=== PATIENT | male | born 1975 | race Caucasian/White ===

== ENCOUNTER 2018-03-01 00:36 | Emergency (ER) | payer MEDICAID ==
[~2018-03-01] VITALS: Ht 182.9 cm; Wt 83.9 kg
== END 2018-03-01 05:00 | disposition home or self-care (01) ==
LOC: ED 00:36
DX: R23.8 Other skin changes (principal); F17.200 Nicotine dependence, unspecified, uncomplicated
CPT/HCPCS: 99282

== ENCOUNTER → 2018-03-02 | Emergency (ER) | payer MEDICAID ==
[~2018-03-02] VITALS: Ht 182.9 cm; Wt 83.9 kg
--- NOTE | 2018-03-04 08:48 | EKG ---
[facility] [address] [facility] [place] [address] Signed Atrial fibrillation with rapid ventricular response with premature ventricular or aberrantly conducted complexes Abnormal ECG No previous ECGs available Confirmed by JON DIETZ MD ([id number]) on 03/04/2018 8:47:52 AM Electronically Signed By: JON DIETZ MD 03/04/18 0848 PATIENT NAME: TRINITY DAMICO MIKE Electrocardiogram DATE OF : 79 PHYSICIAN: JON DIETZ MD REPORT #: [id number] REPORT IS CONFIDENTIAL AND NOT TO BE RELEASED WITHOUT AUTHORIZATION
== END ==
LOC: ED 03:06
DX: I48.91 Unspecified atrial fibrillation (principal); F17.200 Nicotine dependence, unspecified, uncomplicated
CPT/HCPCS: 71045; 80053; 83735; 84484; 85025; 93005; 93010; 96374; 99284; J7030

== ENCOUNTER 2019-02-09 19:38 | Emergency (ER) | payer OTHER ==
[~2019-02-09] VITALS: Ht 182.9 cm; Wt 83.9 kg
--- OUTSIDE RECORDS SUMMARY | 2019-02-09 22:16 | XMS ---
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 Events No recent Security Events currently on file CRITERIA MET - [facility] [place] PROVIDERS SEMAJ CAO Rubber Compounder Formulator: Clinical 11/02/2018-Current PHONE: [phone] [facility] Current PHONE: Unknown MAYELA FONG Student in an Organized Health Care Current Education/Training Program PHONE: [phone] BERTHA FATIMA Corporate Giving Manager/Global Category Manager Current PHONE: [phone] BERTHA FATIMA Primary Care Current PHONE: Unknown Guidelines Source: [facility] Guidelines Date: 09/01/2018 Care Coordination: Client states they would like \T\quot;Meggan Machado\T\quot; contacted to help coordinate care. Pain Management: Client stated nothing they could think of would be helpful.\T\nbsp; Other Information: Client relays that being offered anxiety medications, offered encouragement and empathy. Client states they are not concerned about harming themselves or others in the ED Client relays that \T\quot;human beings\T\quot; can be triggering, specifically when people being rude, impatient or judgmental.\T\nbsp;\T\nbsp; This is a guideline, attending physician\T\#39;s should use clinical judgement.\ T\nbsp; E.D. VISIT COUNT (12 MO.) [address] [place] [address] [facility] [place] TOTAL 7 NOTE: Visits indicate total known visits. ED/UCC VISIT TRACKING (12 MO.) 02/09/2019 19:[address] [facility] [place] TYPE: Emergency COMPLAINT: - CHEST PAIN,VOMITING [facility]2018 [facility] DIAGNOSES: - Medication Administration Only - Needs Medication 07/28/2018 09:11 [facility] [place] TYPE: Emergency DIAGNOSES: - Paroxysmal atrial fibrillation - Dehydration - Hypokalemia - Tachycardia 04/19/2018 11:01 [email or web address] [place] TYPE: Emergency DIAGNOSES: - Agitation - Recurrent oral aphthae - Lip Laceration - Mouth Lesions 03/18/2018 17:[facility] DIAGNOSES: - Schizoaffective disorder, bipolar type - Cellulitis of unspecified part of limb - Other stimulant abuse, uncomplicated - Shortness of Breath - Meth Use, Shortness of Breath - Other psychoactive substance use, unspecified, uncomplicated - Meth Use 03/02/2018 03:06 [facility] [place] TYPE: Emergency COMPLAINT: - HEART PALPITATIONS DIAGNOSES: - Unspecified atrial fibrillation - Palpitations - Nicotine dependence, unspecified, uncomplicated 03/01/2018 00:37 [facility] [place] TYPE: Emergency COMPLAINT: - L R FOOT PAIN DIAGNOSES: - Pain in right ankle and joints of right foot - Nicotine dependence, unspecified, uncomplicated - Other skin changes INPATIENT VISIT TRACKING (12 MO.) 03/18/2018 17:21 [facility] [place] [place] TYPE: [facility] DIAGNOSES: - Schizoaffective disorder, bipolar type - Other psychoactive substance use, unspecified, uncomplicated - Other stimulant abuse, uncomplicated - Cellulitis of unspecified part of limb - Other stimulant abuse, uncomplicated [email or web address]
--- NOTE | 2019-02-10 16:52 | EKG ---
[facility] [address] [place] [address] Signed Sinus tachycardia Possible Left atrial enlargement Incomplete right bundle branch block Nonspecific ST abnormality in inferior and anterolateral leads new compared to 03/02/2018 EKG. Abnormal ECG When compared with ECG of 02-MAR-2018 03:11, Sinus rhythm has replaced Atrial fibrillation Incomplete right bundle branch block is now present Non-specific change in ST segment in Anterior leads QT has lengthened Confirmed by JON DIETZ MD ([id number]) on 02/10/2019 4:52:25 PM Electronically Signed By: JON DIETZ MD 02/10/19 165 PATIENT NAME: TRINITY DAMICO Electrocardiogram DATE OF : 79 PHYSICIAN: JON DIETZ MD REPORT #: [id number] REPORT IS CONFIDENTIAL AND NOT TO BE RELEASED WITHOUT AUTHORIZATION
== END 2019-02-09 22:00 | disposition home or self-care (01) ==
LOC: ED 19:38
DX: R00.2 Palpitations (principal); F17.200 Nicotine dependence, unspecified, uncomplicated
CPT/HCPCS: 71045; 80053; 83735; 84484; 85025; 93005; 93010; 96361; 96374; 99285-25; G0480; J2405; J7030

== ENCOUNTER 2019-07-09 19:09 | Emergency (ER) | payer OTHER ==
[~2019-07-09] VITALS: Ht 182.9 cm; Wt 41.3 kg
--- OUTSIDE RECORDS SUMMARY | 2019-07-09 19:12 | XMS ---
PreManage Notification: TRINITY DAMICO Security Afterschool Events No recent Security Events currently on file CRITERIA MET - [facility] CARE PROVIDERS JARON HERNANDEZ Counselor: Mental Health Current PHONE: [phone] SEMAJ CAO Rnp: Clinical 11/02/2018-Current PHONE: [phone] [facility] Current PHONE: Unknown NGOZI VUONG Nurse Practitioner: Adult Health Current PHONE: [phone] BERTHA FATIMA Primary Care Current PHONE: Unknown Guidelines Source: [facility] Guidelines Date: 09/01/2018 Care Coordination: Client states [...] judgement.\ T\nbsp; E.D. VISIT COUNT (12 MO.) [address] [place] [address] [place] TOTAL 4 NOTE: Visits indicate total known visits. ED/UCC VISIT TRACKING (12 MO.) 07/09/2019 19:10 [facility] [place] TYPE: Emergency COMPLAINT: - POSS. AFIB 02/09/2019 19:38 [facility] [place] TYPE: Emergency COMPLAINT: - CHEST PAIN,VOMITING DIAGNOSES: - Nausea with vomiting, unspecified - Nicotine dependence, unspecified, uncomplicated - Palpitations 11/01[facility]2018 [facility] DIAGNOSES: - Medication Administration Only - Needs Medication 07/28/2018 09:11 [facility] [place] TYPE: Emergency DIAGNOSES: - Paroxysmal atrial fibrillation - Dehydration - Hypokalemia - Tachycardia INPATIENT VISIT TRACKING (12 MO.) No inpatient visits to display in this time frame [email or web address]
[2019-07-09] MEDS ORDERED: BASAGLAR K100 UNIT/1 (19:22)
[2019-07-09] MEDS ORDERED: SEROQUEL300 MG PO (19:23)
[2019-07-09] MEDS ORDERED: NAPROXEN500 MG PO (19:23)
[2019-07-09] MEDS ORDERED: CARDIZEM CD120 MG PO (22:07)
--- NOTE | 2019-07-10 11:08 | EKG ---
[facility] [address] [facility] [place] [address] Signed Atrial fibrillation with rapid ventricular response Abnormal ECG When compared with ECG of 09-FEB-2019 20:18, Atrial fibrillation has replaced Sinus rhythm Confirmed by ALICIA CORTES DO ([id number]) on 07/10/2019 11:08:31 AM Electronically Signed By: ALICIA CORTES DO 07/10/19 1108 PATIENT NAME: MOOKIETRINITY MIKE Electrocardiogram DATE OF : 79 PHYSICIAN: ALCIIA CORTES DO REPORT #: [id number] REPORT IS CONFIDENTIAL AND NOT TO BE RELEASED WITHOUT AUTHORIZATION
== END 2019-07-09 22:40 | disposition home or self-care (01) ==
LOC: ED 19:09
DX: I48.91 Unspecified atrial fibrillation (principal); Z87.891 Personal history of nicotine dependence
CPT/HCPCS: 71045; 80053; 83735; 84443; 84484; 85025; 93005; 93010; 96361; 96374; 96376; 99285-25; J7030

== ENCOUNTER 2019-10-09 16:19 | Observation (INO) | payer OTHER ==
[~2019-10-09] VITALS: Ht 182.9 cm; Wt 79.9 kg
[~2019-10-09 16:19] MED LIST: BASAGLAR K100 UNIT/1; CARDIZEM CD120 MG PO; NAPROXEN500 MG PO; SEROQUEL300 MG PO
--- OUTSIDE RECORDS SUMMARY | 2019-10-09 16:22 | XMS ---
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 VISIT COUNT (12 MO.) [address] [place] [address] [address] TOTAL 4 NOTE: Visits indicate total known visits. ED/UCC VISIT TRACKING (12 MO.) 10/09/2019 16:19 [facility] [place] TYPE: Emergency COMPLAINT: - IRREGULAR HEART BEAT 07/09/2019 19:10 [facility] [place] TYPE: Emergency COMPLAINT: - POSS. AFIB DIAGNOSES: - Palpitations - Personal history of nicotine dependence - Unspecified atrial fibrillation 02/09/2019 19:38 [facility] [place] TYPE: Emergency COMPLAINT: - CHEST PAIN,VOMITING DIAGNOSES: - Nausea with vomiting, unspecified - Nicotine dependence, unspecified, uncomplicated - Palpitations [facility]2018 [facility] DIAGNOSES: - Medication Administration Only - Needs Medication INPATIENT VISIT TRACKING (12 MO.) No inpatient visits to display in this time frame [id number]
--- NOTE | 2019-10-09 18:51 | EKG ---
[facility] [address] [facility] [place] [address] Signed Atrial fibrillation with rapid ventricular response Incomplete right bundle branch block Anterior infarct , age undetermined Abnormal ECG When compared with ECG of 09-JUL-2019 19:20, Anterior infarct is now present ST now depressed in Inferior leads Nonspecific T wave abnormality now evident in Anterior leads Confirmed by ALICIA CORTES DO ([id number]) on 10/09/2019 6:51:00 PM Electronically Signed By: ALICIA CORTES DO 10/09/19 185 PATIENT NAME: TRINITY DAMICO Electrocardiogram DATE OF : 79 PHYSICIAN: ALICIA CORTES DO REPORT #: [id number] REPORT IS CONFIDENTIAL AND NOT TO BE RELEASED WITHOUT AUTHORIZATION
--- NOTE | 2019-10-09 23:00 | NUR ---
PATIENT ARRIVED VIA STRETCHER. TRANSFERED WITHOUT ASSISTANCE TO BED. STABLE ON HIS FEET. HR IRREGULAR IN 60'S. CARDIZEM INFUSION AT 7.5 MG/HR. VERBAL ORDERS TO DC CONTINUOUS INFUSION. PATIENT DENIES ANY CONCERNS. IV FLUIDS PER ORDER, SITE WNL. VS STABLE. PATIENT CONTINUES TO BE IN A FIB.
--- NOTE | 2019-10-10 02:00 | NUR ---
PATIENT UP TO THE BATHROOM. STEADY ON FEET. VOIDED 350 MLS TONNY URINE. PATIENT RETUNRED TO BED. DENIES ANY CONCERNS OR DISCOMFORTS. VS STABLE. HR 60-80'S IRREGULAR. IV FLUIDS PER ORDER, SITE WNL.
--- NOTE | 2019-10-10 02:15 | NUR ---
PATIENT'S BP 70'S SYSTOLIC. PATIENT LAYING ON LEFT SIDE WITH RIGHT ARM ELEVATED. REQUESTED PATIENT TO LAY ON HIS BACK. BP IMPROVED WITH SYSTOLLIC >100.
--- NOTE | 2019-10-10 04:30 | NUR ---
PATIENT SLEEPING SOUNDLY. WOKE EASILY TO VOICE. DENIES NEEDS TO VOID. HR 40-60'S A FIB.
--- NOTE | 2019-10-10 06:25 | NUR ---
PATIENT SLEEPING SOUNDLY. WOKE EASILY TO VOICE. DENIES NEED TO VOID. DISCUSSED IV FLUIDS WITH PATIENT AND SOFT BP THROUGHOUT THE NIGHT. BOLUS STARTED AT THIS TIME.
--- NOTE | 2019-10-10 08:43 | NUR ---
PT ALERT AND ORIENTED X4, COOPERATIVE AND POLITE. PT DENIES PAIN, SOB, AND NAUSEA. PT DOES REPORT FEELING SOME PALPITATIONS IN HIS CHEST AT TIMES. PT IV SITE IS INTACT, NO REDNESS OR SWELLING NOTED, FLUIDS INFUSE EASILY. PT UP AMBULATING TO THE BATHROOM INDEPENDENTLY, HR REMAINS 60'S-80'S A-FIB. PT ABLE TO DO OWN AM CARES. ALL LINENS CHANGED ON BED BY RN.
--- NOTE | 2019-10-10 09:22 | NUR ---
PT CONVERTED TO SINUS RHYTHM.
--- NOTE | 2019-10-10 09:45 | NUR ---
PT AMBULATES TO THE SHOWER INDEPENDENTLY, ALL HYGIENE SUPPLIES PROVIDED. PT GUERA ACTIVITY WELL. ABLE TO DO ALL CARES INDEPENDENTLY.
[2019-10-10] MEDS ORDERED: CARDIZEM CD120 MG PO ×2 (09:47→09:51)
--- NOTE | 2019-10-10 10:15 | NUR ---
PT BACK TO ROOM FROM SHOWER, ABLE TO DO ALL CARES INDEPENDENTLY. PT AMBULATES INDEPENDENTLY IN [place]. PT DENIES PAIN, NAUSEA, AND CHEST PAIN. STATES "I'M READY TO GO".
--- NOTE | 2019-10-10 10:26 | NUR ---
PT AMBULATES SELF OFF UNIT, ALL PERSONAL BELONGINGS RETURNED TO HIM, ALL D/C INSTRUCTIONS AND PAPERWORK GIVEN TO PT. PT STEADY ON HIS FEET. SALINE LOCK REMOVED EARLIER.
--- NOTE | 2019-10-11 14:04 | EKG ---
[facility] [address] [facility] [place] [address] Signed Atrial fibrillation with premature ventricular or aberrantly conducted complexes Low voltage QRS Incomplete right bundle branch block Abnormal ECG Confirmed by ALIICA CORTES DO ([id number]) on 10/11/2019 2:04:34 PM Electronically Signed By: ALICIA CORTES DO 10/11/19 1404 PATIENT NAME: TRINITY DAMICO MIKE Electrocardiogram DATE OF : 79 PHYSICIAN: ALICIA CORTES DO REPORT #: [id number] REPORT IS CONFIDENTIAL AND NOT TO BE RELEASED WITHOUT AUTHORIZATION
== END 2019-10-10 10:28 | disposition home or self-care (01) ==
LOC: ED 16:19 → CCU 16:20
PROVIDERS: ADMIT Student in an Organized Health Care Education/Training Program
DX: I48.0 Paroxysmal atrial fibrillation (principal); F17.200 Nicotine dependence, unspecified, uncomplicated; Z79.899 Other long term (current) drug therapy
CPT/HCPCS: 80053; 83735; 84484; 85025; 93005; 93010; 96361; 96365; 96366; 96375; 96376; 99285-25; G0378; J2060; J7030; J7121